=== PATIENT | female | born 1965 | race Caucasian/White ===

== ENCOUNTER → 2022-04-08 | Outpatient (CLI) | payer MEDICARE ==
--- NOTE | 2022-04-10 03:31 | MR ---
EXAMINATION TYPE: MR brain and iac wo/w con DATE OF EXAM: 04/08/2022 COMPARISON: None HISTORY: Double vision, dizziness, headaches CONTRAST: Standard multiplanar, multisequence MRI departmental protocol images were obtained without contrast a nd with 12 mL intravenous Gadavist gadolinium contrast. Diffusion images show no evidence of an acute infarct. The ventricles have normal size. There is no m ass effect or midline shift. No sign of intracranial hemorrhage. No evidence of cerebral edema. The g ray and white matter structures have fairly normal signal pattern. There is a single 4 mm focus of in creased signal at the reyes-white matter junction right parietal lobe. The brainstem is intact. No hever dence of a posterior fossa mass. The internal auditory canals appear normal. There is no evidence of cerebellopontine angle mass. Ther e is normal appearance of the acoustic nerve and the vestibular nerve. No pathologic enhancement. The re is normal enhancement of the venous sinuses. The corpus callosum is intact. No evidence of orbital mass. Sella turcica appears normal. Optic chias m appears normal. IMPRESSION: Single small focus of increased signal in the right parietal lobe white matter of doubtful significan ce. Otherwise negative exam. No focal posterior fossa abnormality.
== END | disposition home or self-care (01) ==
LOC: RADMRIMAIN 14:09
PROVIDERS: ATTEND Psychiatry & Neurology Neurology
DX: R90.82 White matter disease, unspecified (principal); R51.9 Headache, unspecified; R26.89 Other abnormalities of gait and mobility
CPT/HCPCS: 70553; A9585